=== PATIENT | male | born 1960 | race Caucasian/White ===

== ENCOUNTER 2017-01-26 13:01 | Emergency (ER) | payer BC ==
[2017-01-26] MEDS ORDERED: Albuterol 2.5 MG/3 ML NEB.SOL* (0.083%) INH ONE (14:49)
--- NOTE | 2017-01-26 14:49 | UC ---
Respiratory Complaint HPI - History of Current Complaint Chief Complaint: UCRespiratory Stated Complaint: cough,vomiting Time Seen by Provider: 01/26/17 14:40 Hx Obtained From: Patient Onset/Duration: Sudden Onset, Lasting Days - 9, Still Present Timing: Constant Severity Initially: Mild Severity Currently: Moderate Character: Cough: Productive - mucus, sometimes coughing to the point of vomiting Aggravating Factors: Deep Breaths, Recumbent Position Alleviating Factors: Nothing Associated Signs And Symptoms: Positive: Fever, Wheezing, URI, Nasal Congestion , Hoarseness Related History: Seasonal Allergies - just with hay - Risk Factors Pulmonary Embolism Risk Factors: Negative - Allergies/Home Medications Allergies/Adverse Reactions: Allergies Allergy/AdvReac Type Severity Reaction Status Date / Time No Known Allergies Allergy Verified 01/26/17 14:31 Home Medications: Home Medications [id number] [Nyquil Severe Cold/Flu 5-6.25-10-325 mg/15Ml] 1 liq PO BID PRN 01/26/17 [History Confirmed 01/26/17] guaiFENesin ER TAB [Mucinex*] 1 dose PO BID PRN 01/26/17 [History Confirmed ] PMH/Surg Hx/FS Hx/Imm Hx Cardiovascular History Of: Denies: Hypertension Respiratory History Of: Denies: Asthma - Surgical History Surgical History: Yes Surgery Procedure, Year, and Place: left shoulder procedure - Family History Known Family History: Positive: Cardiac Disease Negative: Hypertension, Diabetes - Social History Occupation: Employed Full-time Lives: With Family Alcohol Use: Rare Substance Use Type: None Smoking Status (MU): Former Smoker Have You Smoked in the Last Year: No Review of Systems Constitutional: Fever Respiratory: Shortness Of Breath, Cough Gastrointestinal: Vomiting - post tussive All Other Systems Reviewed And Are Negative: Yes Physical Exam Triage Information Reviewed: Yes Appearance: No Pain Distress, Well-Nourished, Ill-Appearing Vital Signs: Initial Vital Signs Temp 98.2 F 01/26/17 14:21 Pulse 77 01/26/17 14:21 Resp 22 01/26/17 14:21 BP 132/66 01/26/17 14:21 Pulse Ox 100 01/26/17 14:21 Vital Signs Reviewed: Yes Eyes: Positive: Conjunctiva Clear ENT: Positive: Pharynx normal, TMs normal Neck exam: Normal Respiratory: Positive: Crackles - bibasilar, right > left, Wheezing - expiratory wheeze on coughing Cardiovascular Exam: Normal Musculoskeletal Exam: Normal Neurological Exam: Normal Psychological Exam: Normal Skin Exam: Normal UC Diagnostic Evaluation - Laboratory O2 Sat by Pulse Oximetry: 100 Re-Evaluation - Re-Evaluation First Eval Re-Evaluation Time: 15:18 Change: Improved - decreased wheezing on exam. Respiratory Course/Dx - Differential Dx/Diagnosis Differential Diagnosis/HQI/PQRI: Asthma, Lower Resp Infection, Sinusitis Provider Diagnoses: Bronchopneumonia. Acute bronchospasm Discharge - Discharge Plan Condition: Stable Disposition: HOME Prescriptions: Albuterol HFA INHALER* [Ventolin HFA Inhaler*] 2 puff INH Q4H PRN #1 mdi PRN Reason: Wheezing DOXYcycline CAP(*) [DOXYcycline 100MG CAP(*)] 100 mg PO BID #20 cap predniSONE TAB* [Deltasone TAB*] 20 mg PO DAILY #18 tab Patient Education Materials: Pneumonia (ED), Doxycycline (By mouth), Bronchospasm (ED), Prednisone (By mouth), How to Use a Metered-Dose Inhaler (ED) , Albuterol (By breathing)
[2017-01-26] MEDS ORDERED: methylPREDNISolone 125 MG* 2 ML VIAL IM ONE (15:14)
--- NOTE | 2017-01-26 15:17 | RAD ---
INDICATION: Cough COMPARISON: None TECHNIQUE: PA and lateral dual-energy views were obtained. FINDINGS: Bones/Soft Tissues: There are no acute bony findings. Cardiomediastinal: The cardiomediastinal silhouette is normal. Lungs: There are no infiltrates. Pleura: There are no pleural effusions. Other: None IMPRESSION: NO ACTIVE DISEASE.
[2017-01-26 15:54] VITALS: BP 138/75
== END 2017-01-26 15:54 | disposition home or self-care (01) ==
LOC: UCCORT 13:01
DX: J18.0 Bronchopneumonia, unspecified organism (principal); J98.01 Acute bronchospasm; Z87.891 Personal history of nicotine dependence
CPT/HCPCS: 71020; 96372; 99212; G0463; J2930